=== PATIENT | male | born 1995 | race Caucasian/White ===

== ENCOUNTER 2020-11-03 12:58 | Emergency (ER) | payer SELFPAY ==
--- NOTE | ~2020-11-03 | XR_ITS ---
EXAMINATION: XR chest 1V portable DATE: 11/03/2020 15:06 INDICATION: Cough TECHNIQUE: AP view of the chest was obtained. COMPARISON: None FINDINGS: The lungs are clear with no focal airspace opacities, pulmonary edema, pleural effusion or pneumothor ax. The cardiomediastinal silhouette is normal. Visualized bones and soft tissues are unremarkable. IMPRESSION: 1. Normal chest radiograph. Reviewed, dictated and finalized at location A. [employer] IMPRESSION: 1. Normal chest radiograph.
[2020-11-03 13:14] VITALS: BP 123/98; PULSE 110; RESP 18; TEMP 36.6; O2SAT 98
[2020-11-03] MEDS: SODIUM CHLORIDE 0.9% IV 1,000 ML 999 ML IV CONT (15:02)
[2020-11-03] MEDS: KETOROLAC 30 MG/ML VIAL (*BKC) IV PUSH (15:03)
[2020-11-03 15:10] VITALS: BP 128/80; PULSE 98; RESP 16; O2SAT 100
--- NOTE | 2020-11-03 16:09 | ED.GENADULT ---
HPI - General Adult General Chief complaint: Upper Respiratory Infection Stated complaint: sore throat/headache, Time Seen by Provider: 11/03/20 14:32 History of Present Illness HPI narrative: Patient is a 25-year-old male who presents to the ER with planes of not feeling well. Reports he ate an meal last night and then started having sore throat with sinus congestion. He has had cough as well as body aches and subjective fevers/chills. No known sick contacts. Related Data Home Medications Medication Instructions Recorded Confirmed No Home Medications 11/03/20 11/03/20 Allergies Allergy/AdvReac Type Severity Reaction Status Date / Time No Known Allergies Allergy Verified 11/03/20 12:59 Review of Systems Review of Systems: All systems reviewed & are unremarkable except as noted in HPI and below Constitutional: Constitutional: Reports chills, Reports fatigue and Reports fever(s) ENT: Reports nasal congestion and Reports sore throat Cardiovascular: Cardiovascular: Denies chest pain and Denies radiating jaw, neck or arm pain Respiratory: Respiratory: Reports cough, Denies dyspnea and Denies wheezing Gastrointestinal: Gastrointestinal: Denies abdominal pain, Denies nausea and Denies vomiting Musculoskeletal: Musculoskeletal: Denies back pain, Reports myalgias and Denies arthralgias PMF Past Medical History Medical History (Updated 11/03/20 @ 16:13 by Brandon Vogel MD) Healthy adult male Surgical History Surgical History (Updated 11/03/20 @ 16:11 by Brandon Vogel MD) No history of previous surgery Social History Social History Gender identity (if verbalized by the patient): Male Exam Narrative: Exam Narrative: GENERAL: Well-appearing, well-nourished, and in no acute distress. HEAD: Normocephalic, atraumatic. ENT: Mucous membranes moist. Pharyngeal erythema without tonsillar hypertrophy or exudate. NECK: Supple. CHEST: Clear to auscultation. No respiratory distress. HEART: Tachycardic and regular. Normal peripheral pulses. ABDOMEN: Soft, nontender, nondistended. EXTREMITIES: Normal range of motion. No edema. NEURO: Alert and oriented x3. PSYCH: Normal mood and affect. Course Course Emergency Course: Labs unremarkable. Feels better with fluids and Toradol. Discharge home and discussed need for isolation until receiving Covid results. Vital Signs Vital signs: Vital Signs Temperature 97.8 F 11/03/20 13:14 Pulse Rate 110 H 11/03/20 13:14 Respiratory Rate 18 11/03/20 13:14 Blood Pressure 123/98 H 11/03/20 13:14 Pulse Oximetry 98 11/03/20 13:14 Temperature 97.8 F 11/03/20 13:14 Pulse Rate 110 H 11/03/20 13:14 Respiratory Rate 18 11/03/20 13:14 Blood Pressure 123/98 H 11/03/20 13:14 Pulse Oximetry 98 11/03/20 13:14 Medical Decision Making Vital Signs Vital Signs: Vital Signs Temperature 97.8 F 11/03/20 13:14 Pulse Rate 110 H 11/03/20 13:14 Respiratory Rate 18 11/03/20 13:14 Blood Pressure 123/98 H 11/03/20 13:14 Pulse Oximetry 98 11/03/20 13:14 Temperature 97.8 F 11/03/20 13:14 Pulse Rate 110 H 11/03/20 13:14 Respiratory Rate 18 11/03/20 13:14 Blood Pressure 123/98 H 11/03/20 13:14 Pulse Oximetry 98 11/03/20 13:14 Lab Data Labs: Lab Results 11/03/20 Range/Units 15:04 SARS-CoV-2 RNA (RT-PCR) Pending Influenza A Screen Negative Reference Range: Negative Influenza B Screen Negative Reference Range: Negative Strep Screen Presumptive Negative *(Reference Range: Negative)* Discharge Plan Discharge Clinical Impression: Person under investigation for COVID-19 Patient Disposition: Home, Self-Care Condition: Stable Instructions: COVID-19 (Coronavirus Disease 2019) (ED) Additional Instruction
[2020-11-03 16:45] VITALS: BP 127/84; PULSE 88; RESP 16; O2SAT 99
[2020-11-04 14:07] LABS: SARS-CoV-2 RNA PCR Negative
== END 2020-11-03 16:45 | disposition home or self-care (01) ==
PROVIDERS: Emergency Provider Emergency Medicine; PCP Family Medicine
DX: Z20.822 Contact with and (suspected) exposure to COVID-19 (principal); J02.9 Acute pharyngitis, unspecified
CPT/HCPCS: 71045; 87081; 87804; 87880; 96361; 96374; 99284; C9803; J1885; J7030; U0003; U0005